=== PATIENT | female | born 1985 | race African-American/Black ===

== ENCOUNTER 2019-10-15 20:59 | Inpatient (IN) | payer MEDICAID ==
[~2019-10-15] VITALS: Ht 175.3 cm; Wt 114.3 kg
[2019-10-15] MEDS ORDERED: DEXT 5%/LR + PITOCIN 20UNITS/L 1,000 ML IV SCH (21:13)
[2019-10-15] MEDS ORDERED: RHO(D) IMMUNE GLOBULIN 300 MCG/SYR IM ONE (21:15)
[2019-10-15] MEDS ORDERED: BUTORPHANOL TARTRATE 2 MG/ML VIAL IV PRN (21:15)
[2019-10-15] MEDS ORDERED: NALOXONE HCL 0.4 MG/ML 1ML VIAL IM PRN (21:15)
[2019-10-15] MEDS ORDERED: LIDOCAINE HCL 1% 20ML VIAL (Pyxis) INJ INFIL SCH (21:15)
[2019-10-15] MEDS: LACTATED RINGERS 1,000 ML IV SCH ×2 (21:46→22:11)
[2019-10-15 22:02] LABS: BASOPHILS % 0.6 % (0.0-2.0); EOSINOPHILS % 1.4 % (0.0-5.0); HEMATOCRIT. 32.9 % (36.0-48.0); HEMOGLOBIN. 10.8 g/dL (12.0-16.0); LYMPHOCYTES % 20.4 % (20.0-50.0); MEAN CORPUSCULAR HEMOGLOBIN 27.6 pg (28.0-32.0); MONOCYTES % 9.8 % (2.0-8.0); NEUTROPHILS % 67.8 % (40.0-76.0); PLATELET 292 x1000/uL (130-400); RED BLOOD CELL COUNT 3.92 mill/uL (4.2-5.4); RED CELL DISTRIBUTION WIDTH 14.8 % (11.6-14.6)
[2019-10-15 22:14] LABS: INR 0.9; PARTIAL THROMBOPLASTIN TIME 26.9 sec (23.4-31.0); PROTHROMBIN TIME 9.6 sec (9.6-11.0)
[2019-10-15 22:39] LABS: HEPATITIS B SURFACE ANTIGEN NEGATIVE
[2019-10-15] MEDS ORDERED: PREN1TAB78 PO (22:41)
[2019-10-15] MEDS: DEXT 5%/LR + PITOCIN 20UNITS/L 1,000 ML IV SCH (23:46)
[2019-10-16] MEDS ORDERED: BENZOCAINE/LANOLIN/ALOE VERA SPRAY TOP PRN (00:15)
[2019-10-16] MEDS ORDERED: METHYLERGONOVINE MALEATE 0.2 MG/ML IM PRN (00:15)
[2019-10-16] MEDS ORDERED: ACETAMINOPHEN WITH CODEINE 300/30MG TABLET PO PRN ×2 (00:15)
[2019-10-16] MEDS ORDERED: HEMORRHOIDAL SUPP PR PRN (00:15)
[2019-10-16] MEDS ORDERED: BISACODYL 10MG SUPP PR PRN (00:15)
[2019-10-16] MEDS ORDERED: GLYCERIN/WITCH HAZEL LEAF MEDICATED PAD TOP PRN (00:15)
[2019-10-16] MEDS ORDERED: DIPHENHYDRAMINE 25MG CAPSULE PO PRN (00:15)
[2019-10-16] MEDS: DEXT 5%/LR + PITOCIN 20UNITS/L 1,000 ML IV SCH (00:36)
[2019-10-16 02:30] VITALS: BP 121/70
[2019-10-16 03:00] VITALS: BP 120/70
[2019-10-16 03:30] VITALS: BP 122/70
[2019-10-16 06:47] LABS: BASOPHILS % 0.2 % (0.0-2.0); EOSINOPHILS % 0.1 % (0.0-5.0); HEMATOCRIT. 29.3 % (36.0-48.0); HEMOGLOBIN. 9.7 g/dL (12.0-16.0); LYMPHOCYTES % 10.6 % (20.0-50.0); MEAN CORPUSCULAR HEMOGLOBIN 27.9 pg (28.0-32.0); MEAN CORPUSCULAR VOLUME 84.3 fL (81.0-99.0); MEAN PLATELET VOLUME 7.9 fl (7.4-10.4); MONOCYTES % 5.2 % (2.0-8.0); NEUTROPHILS % 83.9 % (40.0-76.0); PLATELET 261 x1000/uL (130-400); RED BLOOD CELL COUNT 3.48 mill/uL (4.2-5.4); RED CELL DISTRIBUTION WIDTH 14.8 % (11.6-14.6)
[2019-10-16 07:46] VITALS: BP 103/50
[2019-10-16] MEDS: MAGNESIUM/ALUMINUM HYDROXIDE/SIMETHICONE 30ML UDC PO SCH ×4 (09:02→20:44)
[2019-10-16] MEDS: SIMETHICONE 80MG TABLET CHEW PO SCH ×4 (09:02→20:45)
[2019-10-16] MEDS: PRENATAL VIT/FE FUMARATE/FA TABLET PO SCH (09:03)
[2019-10-16] MEDS: IBUPROFEN 400MG TABLET PO PRN ×2 (09:03→18:01)
[2019-10-16 16:14] VITALS: BP 109/58
[2019-10-16] MEDS ORDERED: DOCUSATE SODIUM 100MG CAPSULE PO SCH (21:00)
[2019-10-16 22:00] VITALS: BP 119/78
[2019-10-17 04:45] VITALS: BP 110/71
[2019-10-17] MEDS ORDERED: NORE0.3520 MT (07:08)
[2019-10-17] MEDS ORDERED: IBUP-2028 PO (07:08)
[2019-10-17] MEDS ORDERED: FERR325T23 PO (07:08)
[2019-10-17 07:27] VITALS: BP 115/61
[2019-10-17] MEDS: SIMETHICONE 80MG TABLET CHEW PO SCH (08:04)
[2019-10-17] MEDS: IBUPROFEN 400MG TABLET PO PRN (08:04)
[2019-10-17] MEDS: MAGNESIUM/ALUMINUM HYDROXIDE/SIMETHICONE 30ML UDC PO SCH (08:04)
[2019-10-17] MEDS: PRENATAL VIT/FE FUMARATE/FA TABLET PO SCH (08:05)
[2019-10-17] MEDS ORDERED: FERROUS SULFATE 325MG TABLET PO SCH (09:00)
== END 2019-10-17 11:00 | disposition home or self-care (01) | DRG 560 ==
LOC: OBSVTOIN 20:59 → 8 EST LDRP 20:59 → 8 EST A/PP 10-16 05:03
PROVIDERS: ADMIT Obstetrics & Gynecology; ATTEND Obstetrics & Gynecology
PROC: 10E0XZZ Delivery of Products of Conception, External Approach (ICD-10-PCS; principal; 2019-10-16)
PROC: 0KQM0ZZ Repair Perineum Muscle, Open Approach (ICD-10-PCS; 2019-10-16)
DX: O76 Abnormality in fetal heart rate and rhythm complicating labor and delivery (principal); O69.81X0 Labor and delivery complicated by cord around neck, without compression, not applicable or unspecified; O70.1 Second degree perineal laceration during delivery; Z37.0 Single live birth; Z3A.39 39 weeks gestation of pregnancy
CPT/HCPCS: 36415; 85025; 86592; 86703; 86762; 86850; 86900; 87340; 99281; G0378; J0595; J2590; J3490